=== PATIENT | female | born 2000 | race Caucasian/White ===

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

== ENCOUNTER → 2022-06-30 11:00 | Outpatient (CLI) | payer OTHER, SELFPAY ==
[2022-06-30 20:31] LABS: Monoscreen (Rapid) Negative (Negative)
[2022-06-30 20:33] LABS: Basophils # 0.1 K/mm3 (0-0.2); Basophils % 1.6 % (0.1-2.0); Eosinophils # 0.1 K/mm3 (0.0-0.4); Eosinophils % 1.1 % (0.1-12.0); Hematocrit 44.8 % (37.0-47.0); Hemoglobin 14.7 g/dL (12.2-16.2); Lymphocytes # 2.7 K/mm3 (0.7-4.5); Lymphocytes % 37.3 % (10-50); Mean Corpuscular HGB Conc 32.8 g/dL (31.8-35.4); Mean Corpuscular Hemoglobin 30.3 pg (27.0-31.2); Mean Corpuscular Volume 92.4 fl (81-99); Mean Platelet Volume 8.2 fl (7.4-10.4); Monocytes # 0.3 K/mm3 (0.1-1.0); Monocytes % 4.6 % (1.7-9.3); Neutrophils % 55.4 % (37.0-80.0); Platelet Count 272 K/mm3 (142-424); Red Blood Count 4.85 M/mm3 (4.20-5.40); Red Cell Distribution Width 12.7 % (11.5-17.5); White Blood Count 7.2 K/mm3 (4.5-13.0)
[2022-06-30 20:40] LABS: Iron 87 ug/dL (37-170)
[2022-06-30 20:42] LABS: Alanine Aminotransferase 13 U/L (12-78); Albumin Level 4.8 g/dl (3.5-5.0); Alkaline Phosphatase 72 U/L (38-126); Anion Gap 10.9 mEq/L (5-15); Aspartate Amino Transferase 30 U/L (14-36); Bilirubin,Total 0.6 mg/dl (0.2-1.3); Blood Urea Nitrogen 13 mg/dl (7-17); Calcium 9.1 mg/dl (8.4-10.2); Carbon Dioxide 26 mmol/L (22.0-30.0); Chloride 107 mmol/L (98-107); Estimated Glomerular Filt Rate 108 ml/min (>60); GFR (African American) 130 ML/MIN (>60); Globulin 2.4 g/dL (1.3-3.2); Glucose 90 mg/dl (74-100); Potassium 3.9 mmoL/L (3.5-5.1); Sodium 140 mmol/L (136-145); Total Protein,Serum 7.2 g/dl (6.3-8.2)
[2022-06-30 20:50] LABS: Total Iron Binding Capacity 322 ug/dL (265-497)
[2022-06-30 20:59] LABS: 25-OH Vitamin D, Total 37.4 ng/mL (30-100)
[2022-06-30 21:12] LABS: Thyroid Stimulating Hormone 2.43 uIU/mL (0.465-4.68)
[2022-06-30 21:31] LABS: Vitamin B12 562 pg/mL (239-931)
[2022-07-02 13:42] LABS: EBV Ab VCA, IgG 57.7 U/mL (0.0-17.9); EBV Ab VCA, IgM <36.0 U/mL (0.0-35.9); EBV Nuclear Antigen Ab, IgG <18.0 U/mL (0.0-17.9)
[2022-07-02 19:58] LABS: Peripheral Smear Review Scanned Result
== END ==
PROVIDERS: PCP Physician Assistant; Visit Provider Physician Assistant
DX: R59.9 Enlarged lymph nodes, unspecified (principal); Z86.718 Personal history of other venous thrombosis and embolism
CPT/HCPCS: 80053; 82306; 82607; 83540; 83550; 84443; 85025; 86318; 86664; 86665